=== PATIENT | female | born 1965 | race Caucasian/White ===

== ENCOUNTER 2017-04-29 19:31 | Emergency (ER) | payer SELFPAY ==
[~2017-04-29] VITALS: Ht 167.6 cm; Wt 94.8 kg
[~2017-04-29 19:31] MED LIST: ALEV220T14 PO; CYCL10TA PO; IBUP1TAB7 PO; MEDR4PAK PO; PRIL20TA2 PO; ROBA500T PO
[2017-04-29 19:40] VITALS: BP 119/77; PULSE 82; RESP 18; TEMP 97.3; O2SAT 97
--- NOTE | 2017-04-29 20:27 | PD ---
HPI Chief Complaint: Musculoskeletal Complaint Time Seen by Provider: 20:21 Travel History International Travel<30 days: No Contact w/Intl Traveler<30days: No Traveled to known affect area: No History of Present Illness HPI The patient was seen and examined in the presence of the nurse. Patient has had sciatica for one year. She doesn't see any follow-up physician just comes to the ER when she gets a flare. No acute injury. She has pain in the right low back and buttock radiating down her leg. Muscle weakness or sensory loss. Denies fever or midline back pain. Severity is moderate PFSH Past Medical History Asthma: Yes (as child) Diminished Hearing: No Gastrointestinal Disorders: Yes GERD: Yes (ACID REFLUX) Musculoskeletal: Yes (rt leg pain for months) Immunizations Current: No ?: Not Menopausal: Yes Dilation and Curettage (D&C): Yes Past Surgical History Tonsillectomy: Yes Social History Alcohol Use: Yes (OCCAISIONAL) Tobacco Use: No Substance Use: No Allergies-Medications (Allergen,Severity, Reaction): Coded Allergies: No Known Allergies (Verified Adverse Reaction, Unknown, 04/29/17) Reported Meds & Prescriptions Reported Meds & Active Scripts Active Reported Prilosec (Omeprazole Magnesium) 20 Mg Tab 1 Tab PO DAILY Review of Systems General / Constitutional: No: Fever HENT: No: Headaches Cardiovascular: No: Chest Pain or Discomfort Respiratory: No: Cough Physical Exam Narrative GASTROINTESTINAL: Abdomen soft, non-tender, nondistended. Positive bowel sounds. No hepato-splenomegaly, or palpable masses. No guarding. SKIN: Focused skin assessment reveals no rash or ulcers. Skin is warm and dry. Palpation shows no induration or nodules. NEUROLOGICAL: Awake and alert. Pupils are equal round and reactive. Motor and sensory grossly within normal limits. Five out of 5 muscle strength in all muscle groups. Normal speech. Equivocal straight leg raise in the right Data Data Last Documented VS Vital Signs Date Time Temp Pulse Resp B/P (MAP) Pulse Ox O2 Delivery O2 Flow Rate FiO2 04/29/17 19:40 97.3 82 18 119/77 (91) 97 MDM Medical Decision Making Medical Screen Exam Complete: Yes Emergency Medical Condition: Yes Medical Record Reviewed: Yes Differential Diagnosis Sciatica, low back strain, lumbar chronic pain Narrative Course I have reviewed the patient's electronic medical record. Patient's been here 5 or 6 times this year for the same right sided sciatica Recommend primary care follow-up She should discuss MRI as an outpatient with the follow-up doctor No emergent indication for imaging Neurologically intact to objective exam I wrote her some tramadol for symptom relief Diagnosis Primary Impression: Back pain with right-sided radiculopathy Additional Instructions: The patient was advised to follow up with their physician and return if they worsen. The patient was warned about potential sedation for the medications they will receive on prescription. Med/Other Pt SpecificInfo: Prescription(s) given Disposition: DISCHARGE HOME Condition: Stable Guillermo Mercado MD Apr 29, 2017 20:26
[2017-04-29] MEDS ORDERED: TRAM50TA PO (20:28)
== END 2017-04-29 20:37 | disposition home or self-care (01) ==
LOC: PHEFT 19:31 → MERGE 19:31 → PHEFT 20:37
DX: M54.5 Low back pain (principal); M54.16 Radiculopathy, lumbar region
CPT/HCPCS: 99282

== ENCOUNTER 2017-06-30 16:54 | Emergency (ER) | payer OTHER ==
[~2017-06-30 16:54] MED LIST changes: -ALEV220T14 PO; -CYCL10TA PO; -IBUP1TAB7 PO; -MEDR4PAK PO; -ROBA500T PO; +TRAM50TA PO
[2017-06-30 17:02] VITALS: BP 136/62; PULSE 84; RESP 20; TEMP 98.1; O2SAT 95
--- NOTE | 2017-06-30 18:17 | PD ---
HPI Chief Complaint: Fall Time Seen by Provider: 17:54 Travel History International Travel<30 days: No Contact w/Intl Traveler<30days: No Traveled to known affect area: No History of Present Illness HPI 52-year-old female presents for evaluation of right knee pain. She reports that yesterday she was in the bathtub when she slipped and fell and injured her right knee. She does not remember if she twisted her right knee or hit it against the bathtub. Regardless, she has had pain in the anterior aspect of the right since then. The pain is a sharp pain which is constant and worse with movement, ambulation. She denies any other injuries and she has no other complaints at this time. [facility] Past Medical History Asthma: Yes (as child) Diminished Hearing: No Gastrointestinal Disorders: Yes GERD: Yes (ACID REFLUX) Musculoskeletal: Yes (rt leg pain for months) Respiratory: Yes (ASTHMA) Immunizations Current: No Tetanus Vaccination: < 5 Years Influenza Vaccination: No ?: Not Menopausal: Yes Dilation and Curettage (D&C): Yes Past Surgical History Tonsillectomy: Yes Social History Alcohol Use: Yes (OCCAISIONAL) Tobacco Use: No Substance Use: No Allergies-Medications (Allergen,Severity, Reaction): Coded Allergies: No Known Allergies (Verified Adverse Reaction, Unknown, 06/30/17) Reported Meds & Prescriptions Reported Meds & Active Scripts Active Reported Prilosec (Omeprazole Magnesium) 20 Mg Tab 1 Tab PO DAILY Review of Systems Musculoskeletal: Positive: Pain, No: Limited ROM Skin: Positive Other (denies open wounds) Physical Exam Narrative GENERAL: Well-developed well-nourished female in no acute distress SKIN: Warm and dry. HEAD: Atraumatic. Normocephalic. EYES: Pupils equal and round. No scleral icterus. No injection or drainage. ENT: No nasal bleeding or discharge. Mucous membranes pink and moist. NECK: Trachea midline. No JVD. CARDIOVASCULAR: Regular rate and rhythm. No murmur appreciated. RESPIRATORY: No accessory muscle use. Clear to auscultation. Breath sounds equal bilaterally. GASTROINTESTINAL: Abdomen soft, non-tender, nondistended. Hepatic and splenic margins not palpable. MUSCULOSKELETAL: Right knee effusion present. Generalized tenderness to palpation the right knee. The patient does maintain full range of motion of the right knee. Stress examination deferred. No tenderness to palpation of the hips, thighs, calves, ankles, feet. 2+ dorsalis pedis and posterior tibial pulses. NEUROLOGICAL: Awake and alert. No obvious cranial nerve deficits. Motor grossly within normal limits. Normal speech. Data Data Last Documented VS Vital Signs Date Time Temp Pulse Resp B/P (MAP) Pulse Ox O2 Delivery O2 Flow Rate FiO2 06/30/17 17:02 98.1 84 20 136/62 (86) 95 Orders Orders Knee, Complete (4vws) (06/30/17 ) Ice/Cold Pack (06/30/17 17:57) Splint Or Brace Apply/Monitor (06/30/17 18:41) Crutches (06/30/17 18:41) Ed Discharge Order (06/30/17 18:41) [facility] Medical Decision Making Medical Screen Exam Complete: Yes Emergency Medical Condition: Yes Medical Record Reviewed: Yes Differential Diagnosis Right knee ligamentous disruption, meniscal disruption, tibial plateau fracture , patellar fracture Narrative Course X-ray imaging of the right knee was obtained revealing no acute abnormalities. I am concerned about the possibility of ligamentous injury given the knee effusion. The patient will be discharged with knee immobilizer and crutches, outpatient follow-up with primary care physician. Diagnosis Primary Impression: Internal derangement of right knee Departure Forms: Tests/Procedures, Work Release Enter return to work date: Jul 04, 2017 Additional Instructions: Ice pack several times a day 20 minutes at a time. Crutches and knee immobilizer as needed. Follow-up with primary care physician in 2 weeks for recheck. If symptoms persist outpatient MRI imaging may be warranted. Med/Other Pt SpecificInfo: Orthopedic Instructions Disposition: 01 DISCHARGE HOME Condition: Stable Jaydon Shaw Jun 30, 2017 18:17
--- NOTE | 2017-06-30 18:32 | RADRPT ---
EXAM DATE/TIME: 06/30/2017 17:59 [facility] COMPARISON: No previous studies available for comparison. INDICATIONS : Fell in shower yesterday. Pain on the anterior and posterior aspects. MEDICAL HISTORY : None. SURGICAL HISTORY : None. ENCOUNTER: Initial ACUITY: 1 day PAIN SCORE: 8/10 LOCATION: Right Knee FINDINGS: Four view examination of the right knee demonstrates no evidence of fracture or dislocation. Bony mi neralization is normal. The articular surfaces are intact. The suprapatellar soft tissues have a no rmal configuration. CONCLUSION: No acute disease. Lenard Alvarez Jr., MD on June 30, 2017 at 18:29 Board Certified Radiologist. This report was verified electronically.
== END 2017-06-30 18:55 | disposition home or self-care (01) ==
LOC: PHED 16:54 → PHEFT 18:55
DX: M23.91 Unspecified internal derangement of right knee (principal); K21.9 Gastro-esophageal reflux disease without esophagitis; W18.2XXA Fall in (into) shower or empty bathtub, initial encounter
CPT/HCPCS: 73564; 99283; E0113; L1830

== ENCOUNTER 2017-11-05 17:08 | Emergency (ER) | payer OTHER ==
[~2017-11-05] VITALS: Ht 167.6 cm; Wt 95.5 kg
[~2017-11-05 17:08] MED LIST changes: -TRAM50TA PO
[2017-11-05 17:18] VITALS: BP 142/66; PULSE 71; RESP 16; TEMP 98; O2SAT 96
[2017-11-05 18:07] LABS: BILIRUBIN, URINE NEG (NEG); BLOOD, URINE MOD (NEG); GLUCOSE,URINE NEG (NEG); KETONE, URINE NEG (NEG); NITRITE,URINE NEG (NEG); URINE COLOR YELLOW (YELLW/STRAW); URINE LEUKOCYTE ESTERASE NEG (NEG)
[2017-11-05 18:16] LABS: WBC, URINE 0-2 /hpf (0-5)
== END 2017-11-05 18:45 | disposition left against medical advice (07) ==
LOC: PHED 17:08
DX: R11.10 Vomiting, unspecified (principal); M54.5 Low back pain; R42 Dizziness and giddiness; Z53.21 Procedure and treatment not carried out due to patient leaving prior to being seen by health care provider
CPT/HCPCS: 81001; 99281

== ENCOUNTER 2017-11-17 20:46 | Emergency (ER) | payer OTHER ==
[~2017-11-17] VITALS: Ht 167.6 cm; Wt 96.5 kg
[2017-11-17 20:50] VITALS: BP 123/67; PULSE 71; RESP 16; TEMP 97.5; O2SAT 97
[2017-11-17] MEDS ORDERED: traMADol HCL 50 MG TAB PO ONE (21:15)
[2017-11-17] MEDS ORDERED: TRAM50 PO (21:44)
[2017-11-17] MEDS ORDERED: PRED20 PO (21:44)
--- NOTE | 2017-11-17 21:44 | PD ---
HPI Chief Complaint: Abdominal Pain Time Seen by Provider: 21:01 Travel History International Travel<30 days: No Contact w/Intl Traveler<30days: No Traveled to known affect area: No History of Present Illness HPI 52-year-old female complains of right low back pain with radiation to right lower abdomen and right hip area. Patient states that the pain started about 2 weeks ago. Patient states the pain aching pain and sharp pain intermittent pain. Patient denies any fever chills. Patient denies any injury to the area. Patient has history of sciatica. Patient states that the pain is worse after heavy lifting and bending over last night. Patient denies any dysuria frequency. Patient denies any vaginal discharge or bleeding. Patient denies any focal weakness or numbness of the pelvic area or the extremity. PFSH Past Medical History Asthma: Yes (as child) Diminished Hearing: No Gastrointestinal Disorders: Yes GERD: Yes (ACID REFLUX) Musculoskeletal: Yes (rt leg pain for months) Respiratory: Yes (asthma) Immunizations Current: Yes ?: Not LMP: IRREG. Menopausal: Yes Dilation and Curettage (D&C): Yes Past Surgical History Tonsillectomy: Yes Social History Alcohol Use: Yes (OCCAISIONAL) Tobacco Use: No Substance Use: No Allergies-Medications (Allergen,Severity, Reaction): Coded Allergies: No Known Allergies (Verified Adverse Reaction, Unknown, 11/17/17) Reported Meds & Prescriptions Reported Meds & Active Scripts Active Reported Prilosec (Omeprazole Magnesium) 20 Mg Tab 1 Tab PO DAILY Review of Systems General / Constitutional: No: Fever Eyes: No: Visual changes HENT: No: Headaches Cardiovascular: No: Chest Pain or Discomfort Respiratory: No: Shortness of Breath Gastrointestinal: Positive: Abdominal Pain Genitourinary: No: Dysuria Musculoskeletal: No: Pain Skin: No Rash Neurologic: No: Weakness Psychiatric: No: Depression Endocrine: No: Polydipsia Hematologic/Lymphatic: No: Easy Bruising Physical Exam Narrative GENERAL: Well-nourished, well-developed patient. SKIN: Focused skin assessment warm/dry. HEAD: Normocephalic. EYES: No scleral icterus. No injection or drainage. NECK: Supple, trachea midline. No JVD or lymphadenopathy. CARDIOVASCULAR: Regular rate and rhythm without murmurs, gallops, or rubs. RESPIRATORY: Breath sounds equal bilaterally. No accessory muscle use. GASTROINTESTINAL: Abdomen soft, non-tender, nondistended. MUSCULOSKELETAL: No cyanosis, or edema. BACK: Patient has moderate tenderness on palpation right low lumbar area, lateral aspect the right hip, without obvious deformity. No CVA tenderness. Negative straight leg raising. Neurologic exam normal. Data Data Last Documented VS Vital Signs Date Time Temp Pulse Resp B/P (MAP) Pulse Ox O2 Delivery O2 Flow Rate FiO2 11/17/17 20:50 97.5 71 16 123/67 (85) 97 Orders Orders Tramadol (Ultram) (11/17/17 21:15) [facility] Medical Decision Making Medical Screen Exam Complete: Yes Emergency Medical Condition: Yes Medical Record Reviewed: Yes Differential Diagnosis Differential diagnosis including muscle spasm, sciatica, bursitis, tendinitis. Narrative Course 52-year-old female with right low back pain. Ultram 50 mg p.o. given. Diagnosis Primary Impression: Acute lumbar myofascial strain Qualified Codes: S39.012A - Strain of muscle, fascia and tendon of lower back , initial encounter Patient Instructions: General Instructions Additional Instructions: Take medication as directed. Follow-up with personal physician. Return if worse. Med/Other Pt SpecificInfo: Prescription(s) given Scripts Tramadol (Ultram) 50 Mg Tab 50 MG PO Q6H Y for PAIN, #12 TAB 0 Refills Prov: Hoang Ruiz MD 11/17/17 Prednisone (Prednisone) 20 Mg Tab 20 MG PO DAILY, #7 TAB 0 Refills Prov: Hoang Ruiz MD 11/17/17 Disposition: 01 DISCHARGE HOME Condition: Stable Hoang Ruiz MD Nov 17, 2017 21:44
[2017-11-17 22:06] VITALS: BP 134/70
== END 2017-11-17 22:08 | disposition home or self-care (01) ==
LOC: PHED 20:46
DX: S39.012A Strain of muscle, fascia and tendon of lower back, initial encounter (principal); X58.XXXA Exposure to other specified factors, initial encounter; K21.9 Gastro-esophageal reflux disease without esophagitis
CPT/HCPCS: 99283